=== PATIENT | male | born 1955 | race Caucasian/White ===

== ENCOUNTER 2017-05-12 12:21 | Inpatient (IN) ==
[2017-05-12] MEDS ORDERED: NS 1,000 ML IV PRN (12:51)
--- NOTE | 2017-05-12 13:07 | EKG Report ---
Test Performed on : 05/12/2017 12:34:44 PM Test Reason : cp htn cva Blood Pressure : / mmHG Vent. Rate : 080 BPM Atrial Rate : 080 BPM P-R Int : 176 ms QRS Dur : 094 ms QT Int : 378 ms P-R-T Axes : 072 -35 016 degrees QTc Int : 435 ms Normal sinus rhythm. Left axis deviation Septal infarct (cited on or before 12-MAY-2017) Abnormal ECG When compared with ECG of 12-MAY-2017 12:31, (Unconfirmed) Questionable change in QRS axis Unconfirmed Result
--- NOTE | 2017-05-12 13:27 | Diag Imaging Result Doc PS360 ---
EXAM: HEAD W/O CONTRAST HISTORY: expressive aphasia TECHNIQUE: CT brain without. Dose reduction protocol. COMPARISON: None. FINDINGS: No parenchymal hemorrhage. No epidural or subdural hematoma. No subarachnoid hemorrhage. No mass identified on this noncontrasted exam. No hydrocephalus. Mild atrophy. No sinus opacification. IMPRESSION: No hemorrhage. Mild atrophy. Electronically signed by Sajan Barajas 05/12/2017 1:24 PM
--- NOTE | 2017-05-12 13:27 | Diag Imaging Result Doc PS360 ---
EXAM: CHEST-1 VIEW HISTORY: cp cva TECHNIQUE: COMPARISON: None. FINDINGS: The lungs are well expanded. The heart is not enlarged. The vessels are not distended. There are no infiltrates. No effusion identified. There are several old right rib fractures. IMPRESSION: Negative exam.. Electronically signed by Sajan Barajas 05/12/2017 1:25 PM
[2017-05-12 13:53] LABS: MANUAL DIFF NEEDED? NO
[2017-05-12 14:00] LABS: BASO% 0.8 % (0.0-0.8); EOS# 0.33 X1000 (0.0-0.7); HEMATOCRIT 49.2 % (42.0-52.0); HEMOGLOBIN 17.9 g/dL (14.0-18.0); IMM GRAN# 0.02 X1000 (0.0-0.04); IMM GRAN% 0.3 % (0.0-0.5); LYMPH# 1.91 X1000 (1.2-3.4); LYMPH% 29.2 % (20.5-51.1); MCH 33.9 PG (27-31); MCHC 36.4 g/dL (33-37); MCV 93.2 FL (81-99); MONO# 0.62 X1000 (0.11-0.59); MONO% 9.5 % (1.7-9.3); NEUT% 55.2 % (42.2-75.2); PLT 199 X1000 (130-400); RBC 5.28 XMIL (4.7-6.1)
[2017-05-12 14:06] LABS: URINE SOURCE CLEAN CATCH
[2017-05-12 14:20] LABS: UR AMPHETAMINES QUAL NONE DETECTED (NONE DETECT); UR BARBITUATES QUAL NONE DETECTED (NONE DETECT); UR BENZODIAZEPIN QUAL NONE DETECTED (NONE DETECT); UR CANNABINOIDS QUAL NONE DETECTED (NONE DETECT); UR COCAINE QUAL NONE DETECTED (NONE DETECT); UR MDMA QUAL NONE DETECTED (NONE DETECT); UR METHADONE QUAL NONE DETECTED (NONE DETECT); UR METHAMPHETAMINE QUAL NONE DETECTED (NONE DETECT); UR OPIATES QUAL NONE DETECTED (NONE DETECT); UR OXYCODONE QUAL NONE DETECTED (NONE DETECT); UR PCP QUAL NONE DETECTED (NONE DETECT); UR TCA QUAL NONE DETECTED (NONE DETECT)
[2017-05-12 14:21] LABS: CALCIUM 9.3 mg/dL (8.8-10.2); POTASSIUM 4.5 mmol/L (3.5-5.1); TOTAL BILIRUBIN 0.4 mg/dL (0.20-1.00); TOTAL PROTEIN 7.3 g/dL (6.3-8.3)
[2017-05-12 14:23] LABS: BILIRUBIN URINE NEGATIVE (NEGATIVE); BLOOD URINE TRACE (NEGATIVE); CLARITY CLEAR (CLEAR); COLOR YELLOW; GLUCOSE URINE NEGATIVE (NEGATIVE); LEUKOCYTES URINE TRACE (NEGATIVE); NITRITE URINE NEGATIVE (NEGATIVE); PROTEIN URINE 2+(100 mg/dL) mg/dL (NEGATIVE); SP GRAVITY URINE 1.015; UROBILINOGEN URINE NORMAL
[2017-05-12] MEDS ORDERED: LABETALOL IV ONE (14:37)
[2017-05-12 14:42] LABS: URINE CULTURE PL NEEDED? YES; URINE EPITHELIAL CELLS <10 /HPF (<10); URINE RBC <10 /HPF (<10); URINE WBC <10 /HPF (<10)
[2017-05-12] MEDS ORDERED: ASPIRIN PO ONE (15:15)
--- NOTE | 2017-05-12 15:26 | Diag Imaging Result Doc PS360 ---
EXAM: CHEST-PORTABLE HISTORY: Central Line Insertion TECHNIQUE: COMPARISON: A film taken at 1:30 PM FINDINGS: Interval placement of a right subclavian line. The tip overlies the mid superior vena cava. No pneumothorax. There is been no other interval change. IMPRESSION: Right subclavian line in good position with no postprocedural pneumothorax. Electronically signed by Sajan Barajas 05/12/2017 3:24 PM
[2017-05-12 15:46] LABS: INR 0.9 (0.86-1.15); PROTIME 12.9 Seconds (12.1-15.5)
[2017-05-12 15:47] LABS: PTT PL 29.2 Seconds (22.6-43.9)
--- NOTE | 2017-05-12 16:04 | PROVIDER DOCUMENTATION ---
This chart was entered by Tressa Bey Scribe, acting as scribe for Jordon Zhu MD. HPI-Neurological Disorder - General Chief Complaint: Stroke-Like Symptoms Stated Complaint: STROKE LIKE SX Time Seen by Provider: 05/12/17 12:31 Source: patient Allergies/Adverse Reactions: Patient Allergies Allergy/AdvReac Type Severity Reaction Status Date / Time codeine [Codeine] Allergy Intermediate NAUSEA/VOMI Verified 05/12/17 13:22 TING oxycodone HCl * Allergy Intermediate NAUSEA/VOMI Verified 05/12/17 13:22 [From OxyContin] TING Home Medications: Home Medication List Medication Instructions Recorded Confirmed Last Taken Type No Home Medications 12/12/12 05/12/17 Unknown History - History of Present Illness-Neuro Nature of Presenting Problem: Pt is 61 y/o M presents to the ED with expressive aphasia. Pt's states symptom started around 0700 this am. Pt's states it could have started prior but he did not have someone to talk to before she came home from work. Pt denies recent head injury or trauma. Headache Location: denies: frontal, temporal, occipital, parietal, global Severity: reports: moderate Onset/Duration: reports: this morning (0700) Timing: reports: still present Context: reports: impaired speech Character of Altered Mental Status: reports: N/A Any recent trauma/injury?: reports: none Character of Deficits: reports: impaired speech New weakness or altered sensation location:: reports: none Cognitive Baseline: alert, oriented x3 Gait Baseline: walks without assistance Associated Symptoms: reports: denies symptoms Similar Symptoms Previously?: Yes (present since this am ) Recently seen or treated by another doctor?: No Review of Systems - Adult - REVIEW OF SYSTEMS - ADULT Constitutional: denies: chills, fever Eyes: denies: blurred vision, double vision Ears, Nose, Mouth & Throat: denies: ear pain, nose pain, throat pain Cardiovascular: denies: chest pain, heart murmur, irregular heart rate Respiratory: denies: cough, shortness of breath, wheezing Gastrointestinal: denies: abdominal pain, diarrhea, nausea, vomiting Genitourinary: denies: dysuria, flank pain, hematuria Musculoskeletal: denies: bone pain, joint pain, neck pain Integumentary: denies: hives, itching, rash Neurological: reports: other (expressive aphasia). denies: dizziness/vertigo, headache/migraines, numbness, slurred speech, syncope Psychiatric: reports: no symptoms reported Endocrine: reports: no symptoms reported Hematologic/Lymphatic: reports: no symptoms reported Allergic/Immunologic: reports: no symptoms reported All Other Systems: Reviewed and Negative Past History - Adult - PAST MEDICAL HISTORY-ADULT Review of Records: reports: Nursing Assessment Review, Medications Reviewed, Social history reviewed & non-contributory. Major Childhood Illnesses: reports: denies history Cardiovascular: reports: denies history Respiratory: reports: asthma Gastrointestinal: reports: denies history Obstetrical/Gynecological: reports: denies history Genitourinary: reports: denies history Musculoskeletal: reports: chronic pain Neurological: reports: denies history Endocrine/Immune: reports: denies history Other Conditions: reports: denies history - PRIOR SURGERIES/PROCEDURES Surgical/Procedure History: reports: appendectomy, joint replacement - IMMUNIZATION STATUS Childhood Immunizations: See Nurse Assessment Flu Vaccine: See Nurse Assessment - FAMILY HISTORY Family History: reviewed, not pertinent - SOCIAL HISTORY Smoking: cigarettes, less than 1 pack/day Provider spent 3-5 mins advising pt. on dangers of tobacco.: Discussed manners to quit use, and f/u contacts for add'l counseling. Substance Use: denies Living Situation: family Physical Exam- Neurological - Physical Exam-Neuro Initial Vital Signs Reviewed: Yes General Appearance: alert. negative: appears well, obtunded, combative Eye Exam: bilateral eye: normal inspection, PERRL, EOMI HENMT: normocephalic/atraumatic, moist mucous membranes, dental decay. negative : pharyngeal erythema, tonsillar exudate Head Injury: no evidence of injury. negative: contusions, lacerations, swelling Neck: non-tender, normal inspection. negative: lymphadenopathy, tender lateral Respiratory: chest non-tender, lungs clear, normal breath sounds. negative: crackles, wheezing, increased rate Cardiovascular: normal peripheral pulses, regular rate, rhythm. negative: tachycardia, systolic murmur Abdominal Exam: normal bowel sounds, non tender, soft. negative: distended, rebound, hernia Lymphatic: no adenopathy. negative: enlargement, streaking Extremity: normal inspection. 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 negative: facial droop Neurologic: aphasia (expressive). negative: facial droop, motor weakness Integumentary: normal color, normal turgor, warm/dry. negative: diaphoresis, ecchymosis, erythema, swelling Psych/Mental Status: normal mood/affect, oriented x 3. negative: paranoid, tearful Progress - PLAN OF CARE/RESULTS Progress/Plan/Lab Results: Vital Signs - 8 hr 05/12/17 12:29 Pulse Rate 83 Respiratory Rate 16 Blood Pressure 150/112 O2 Sat by Pulse Oximetry 97 Laboratory Results - last 24 hr 05/12/17 05/12/17 05/12/17 12:40 12:40 12:40 WBC 6.54 RBC 5.28 Hgb 17.9 Hct 49.2 MCV 93.2 MCH 33.9 H MCHC 36.4 RDW Std Deviation 13.1 Plt Count 199 MPV 11.0 H Immature Gran % (Auto) 0.3 Neut % (Auto) 55.2 Lymph % (Auto) 29.2 [place] % (Auto) 9.5 H Eos % (Auto) 5.0 Baso % (Auto) 0.8 Immature Gran # (Auto) 0.02 Neut # (Auto) 3.61 Lymph # (Auto) 1.91 [place] # (Auto) 0.62 H Eos # (Auto) 0.33 Baso # (Auto) 0.05 Sodium 136 Potassium 4.5 Chloride 102 Carbon Dioxide 23 L Anion Gap 12 BUN 26 H Creatinine 1.7 H Estimated GFR/1.73 m2 41 BUN/Creatinine Ratio 15 Glucose 99 Calculated Osmolality 277 Calcium 9.3 Total Bilirubin 0.40 AST 18 ALT 16 Alkaline Phosphatase 111 Troponin T < 0.010 Total Protein 7.3 Albumin 4.0 Globulin 3.0 Albumin/Globulin Ratio 1.0 Urine Source Urine Color Urine Clarity Urine pH Ur Specific [place] Urine Protein Urine Ketones Urine Blood Urine Nitrite Urine Bilirubin Urine Urobilinogen Urine Microscopic RBC Urine WBC Urine Microscopic WBC Ur Epithelial Cells Urine Bacteria Urine Glucose Urine Opiates Screen Ur Oxycodone Screen Urine Methadone Screen Ur Barbituates Screen Ur Tricyclics Screen Ur Phencyclidine Scrn Ur Amphetamines Screen U Methamphetamines Scrn Urine MDMA Screen U Benzodiazepines Scrn Urine Cocaine Screen U Cannabinoids Screen 05/12/17 05/12/17 13:27 13:27 WBC RBC Hgb Hct MCV MCH MCHC RDW Std Deviation Plt Count MPV Immature Gran % (Auto) Neut % (Auto) Lymph % (Auto) [place] % (Auto) Eos % (Auto) Baso % (Auto) Immature Gran # (Auto) Neut # (Auto) Lymph # (Auto) [place] # (Auto) Eos # (Auto) Baso # (Auto) Sodium Potassium Chloride Carbon Dioxide Anion Gap BUN Creatinine Estimated GFR/1.73 m2 BUN/Creatinine Ratio Glucose Calculated Osmolality Calcium Total Bilirubin AST ALT Alkaline Phosphatase Troponin T Total Protein Albumin Globulin Albumin/Globulin Ratio Urine Source CLEAN CATCH Urine Color YELLOW Urine Clarity CLEAR Urine pH 6.0 Ur Specific [place] 1.015 Urine Protein 2+(100 mg/dL) A Urine Ketones NEGATIVE Urine Blood TRACE Urine Nitrite NEGATIVE Urine Bilirubin NEGATIVE Urine Urobilinogen NORMAL Urine Microscopic RBC <10 Urine WBC TRACE A Urine Microscopic WBC <10 Ur Epithelial Cells <10 Urine Bacteria NEGATIVE Urine Glucose NEGATIVE Urine Opiates Screen NONE DETECTED Ur Oxycodone Screen NONE DETECTED Urine Methadone Screen NONE DETECTED Ur Barbituates Screen NONE DETECTED Ur Tricyclics Screen NONE DETECTED Ur Phencyclidine Scrn NONE DETECTED Ur Amphetamines Screen NONE DETECTED U Methamphetamines Scrn NONE DETECTED Urine MDMA Screen NONE DETECTED U Benzodiazepines Scrn NONE DETECTED Urine Cocaine Screen NONE DETECTED U Cannabinoids Screen NONE DETECTED Orders Category Date Time Status Cardiac Monitoring DIRECTED Care 05/12/17 12:51 Active Finger Stick Blood Sugar (ED) DIRECTED Care 05/12/17 12:51 Active Saline Loc NOW Care 05/12/17 12:51 Active PICC Line Consult Routine Cons 05/12/17 13:49 Active CHEST-1 VIEW [RAD] Stat Exams 05/12/17 12:51 Completed CHEST-PORTABLE [RAD] Stat Exams 05/12/17 15:05 Ordered HEAD W/O CONTRAST [CT] Stat Exams 05/12/17 12:51 Completed CBC WITH ELECTRONIC DIFF [HEME] Stat Lab 05/12/17 12:40 Completed COMPREHENSIVE METABOLIC PANEL [CHEM] Stat Lab 05/12/17 12:40 Completed PROTIME WITH INR PL [COAG] Stat Lab 05/12/17 12:[address] [COAG] Stat Lab 05/12/17 12:51 Ordered TROPONIN T Stat Lab 05/12/17 12:[address] W/POSS RFLX CULT [URINALYSIS] Stat Lab 05/12/17 13:27 Completed URINE CULTURE [RM] Routine Lab 05/12/17 14:42 Ordered URINE DRUG SCREEN PL Stat Lab 05/12/17 13:27 Completed 0.9% Sodium Chloride Inj [Ns] 1,000 ml Med 05/12/17 12:51 Active IV 75 mls/hr Labetalol Med 05/12/17 14:37 Discontinued 20 mg IV NOW ONE EKG [EKG] Stat Ther 05/12/17 12:51 Draft Result Diagrams: 05/12/17 12:40 05/12/17 12:40 - XRAY 1 XRAY Study: Chest Impression: Normal XRAY Interpretation: negative exam - CT/MRI 1 CT Study: Head Impression: Abnormal CT Results: no hemorrhage. mild atrophy - CONSULTS/PCP/HOSPITALIST Notification #1 *Consult/PCP/Hospitalist*: Dr. Davison Time Discussed: 15:12 Reason/Comments: Dr. Zhu consulted with Dr. Davison about Pt Consult Disposition: Admit Departure - Departure Date of Disposition Decision: 05/12/17 Time of Disposition Decision: 15:02 DIAGNOSIS: CVA (cerebral vascular accident) Disposition: ADMITTED INPATIENT 09 Certified Medical Emergency: Emergent Condition: Stable Referrals and Follow-Ups: None,PCP [Primary Care Provider] - - Critical Care Note This patient required my direct & personal management of CC.: Yes Total Time (mins): 30 Critical Care Statement: This patient required my direct personal management to treat or rule out processes, the absence of which, could potentiallly result in sudden, clinically significant life or limb threatening deterioration. This chart was documented by the indicated scribe, (Tressa Bey, Jakob) and accurately reflects the services I performed and decisions made by me, Chanel Zhu MD, as attested by the provider's signature.
[2017-05-12] MEDS ORDERED: DEMEROL IV ONE (18:18)
[2017-05-12] MEDS ORDERED: ZOFRAN IV PRN (18:18)
[2017-05-12] MEDS ORDERED: NICODERM PATCH TD PRN (18:18)
[2017-05-12] MEDS ORDERED: SODIUM CHLORIDE 0.9% INJ SCH (18:18)
[2017-05-12] MEDS: APRESOLINE IV PRN (18:52)
[2017-05-12] MEDS: MORPHINE IV PRN ×2 (18:55→23:00)
[2017-05-12 19:37] LABS: UR CREAT RANDOM 149.3 mg/dL (14-26)
[2017-05-12] MEDS: M.V.I.-12 10 ML, FOLIC ACID 1 MG, MAGNESIUM SULFATE 1 GM, THIAMINE 100 MG in NS 1,000 ML IV SCH (19:38)
[2017-05-12] MEDS: PROTONIX IV SCH (19:38)
--- NOTE | 2017-05-12 20:00 | HISTORY AND PHYSICAL ---
PRIMARY CARE PHYSICIAN: None. CHIEF COMPLAINT: Difficulty speaking. HISTORY OF PRESENT ILLNESS: This is a 61-year-old male who denies any prior health history, who presented to the emergency room complaining of about 2 hours of difficulty speaking. His is present with him at the time of my exam. He states that he was in his normal state of health until he attempted to speak to his when she came home from work today. He states he knew what he wanted to say but he could not say words. The states that all speech was garbled at that time. He denied having any deficits. She denied seeing any deficits other than the speech. On presentation to the emergency room he was alert and oriented. Speech was clear but he was having difficulty finding his words and pronouncing words. CT scan of the head was negative for CVA. He denied any chest pain, palpitations, dizziness, syncope, change in vision, hearing. PAST MEDICAL HISTORY: Polycystic kidney disease, asthma, chronic back and knee pain. PAST SURGICAL HISTORY: Appendectomy, bilateral total knee replacements, and 17 various knee surgeries. SOCIAL HISTORY: He smokes half a pack a day. He does drink 2-3 beers a day. He denies illicit drug use. ALLERGIES: Codeine and oxycodone which cause nausea and vomiting. HOME MEDICATIONS: None. REVIEW OF SYSTEMS: A 14 point review of systems is discussed with the patient with pertinent positives stated in HPI. He denied chest pain, palpitations, dizziness, syncope , any change in vision, hearing, or sensation to his body, difficulty swallowing, any shortness of breath, cough, fever, chills, nausea, vomiting, diarrhea, constipation, black or bloody vomitus , black or bloody stools. PHYSICAL EXAMINATION: GENERAL: This is a 61-year-old male, who is sitting up in the bed, in no distress. VITAL SIGNS: Blood pressure is 190/97 with a heart rate of 92, respirations are 18, temperature was 97.9 degrees, with room air saturation of 97 to 100%. HEENT: Head is normocephalic, atraumatic. Pupils are equal, round, react to light. EOMs are intact. Sclerae anicteric. Mucous membranes are moist. He does have poor dentition. NECK: Supple with trachea midline. CARDIOVASCULAR: Regular rate and rhythm. PULMONARY: Breath sounds are clear with no increased work of breathing noted. Chest does rise and fall symmetrically with respiration. GASTROINTESTINAL: Abdomen is soft, nondistended, with bowel sounds in all 4 quadrants. MUSCULOSKELETAL: Good range of motion of joints. EXTREMITIES: No clubbing, cyanosis, or edema. Pulses are palpable x4. NEUROLOGIC: He is alert and oriented x3. Pupils are equal, round, react to light. Forehead is spared. He has equal nasal flaring. No facial droop. No tongue deviation. Equal shoulder shrug. He has 5/5 strength x4. 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 DIAGNOSTICS: CT scan of the head revealed no parenchymal hemorrhage. No epidural or subdural hematoma. No subarachnoid hemorrhage. No mass identified on this noncontrast exam. No hydrocephalus. Mild atrophy. No sinus opacification. LABS: WBC is 6.5, with hemoglobin 17.9, hematocrit 49.2, and platelets of 199, 000. Sodium is 136, potassium 4.5, BUN 26, creatinine 1.7, with a glucose of 99. Troponin is negative. Urinalysis is essentially negative with urine drug screen negative. ASSESSMENT AND PLAN: 1. Transient ischemic attack versus cerebrovascular accident. 2. Expressive aphasia. 3. Acute kidney injury. 4. Tobacco use and abuse. 5. Daily alcohol use. 6. Hypertension. PLAN: He will be admitted to ICU with neuro checks per protocol, telemetry. We will give IV hydration. The patient is unaware of having any prior kidney disease. We will hold any renal toxic medications, renal dose as needed, and recheck labs in the morning. We will allow permissive hypertension for the first 24-48 hours, giving hydralazine p.r.n. blood pressure greater than 200/100. As the patient does drink daily, we will monitor for any signs of alcohol withdrawal or DTs. We will give a banana bag daily and alternate with saline. Echocardiogram and carotid Doppler will be performed in the morning. We will hold him NPO until bedside swallow is done. If he can pass this will start clear liquids and advance as tolerated. If not, we will consult speech therapy. Further treatments pending hospital course. Dictated by NAA Atkinson for Sukhjinder Davison MD cc: NAA Atkinson MD pt has focal weakness of dysarthria, will pursue mri in am to rule out CVA and other plans as above described EPIFANIOT CANDELARIOD
[2017-05-12] MEDS: LIPITOR PO SCH (20:30)
[2017-05-12] MEDS ORDERED: LOVENOX SUBQ SCH (21:00)
[2017-05-13] MEDS: MORPHINE IV PRN ×2 (03:07→22:11)
[2017-05-13 05:42] LABS: HEMATOCRIT 40.2 % (42.0-52.0); HEMOGLOBIN 14.1 g/dL (14.0-18.0); MCH 33.5 PG (27-31); MCHC 35.1 g/dL (33-37); MCV 95.5 FL (81-99); MPV 10.3 FL (7.4-10.4); RBC 4.21 XMIL (4.7-6.1)
[2017-05-13 05:58] LABS: POTASSIUM 3.7 mmol/L (3.5-5.1)
[2017-05-13 06:32] LABS: ALBUMIN 3.2 g/dL (3.5-5.0); ALKALINE PHOSPHATASE 88 U/L (32-122); DIRECT BILIRUBIN < 0.20 mg/dL (0.00-0.20); GOT 15 U/L (10-34); GPT 12 U/L (10-44); TOTAL PROTEIN 6.1 g/dL (6.3-8.3)
[2017-05-13] MEDS ORDERED: MORPHINE IV ONE (07:36)
[2017-05-13] MEDS: ASPIRIN EC PO SCH (08:10)
--- NOTE | 2017-05-13 08:48 | PROGRESS NOTE ---
DATE: 05/13/2017 SUBJECTIVE: Patient states that his speech is improved. He still has trouble sometimes getting his words out. Denies any chest pain or palpitations. Denies any headaches or blurred vision. Denies any focalized weakness elsewhere. PHYSICAL EXAMINATION: Vital Signs: Temperature 98, pulse 59, respiratory rate 19, BP 147/74 to 197/80, saturation 96% on room air. General: Patient is awake, alert. He is currently in no respiratory distress. Speech appears regular to me. It does not appear slurred at the moment, although it is slow and soft. HEENT: Normocephalic, atraumatic. LAURIE. Neck: Supple. CV: Regular rate. Chest: Relatively clear. Abdomen: Soft. Extremities: Moves all extremities. Neurologic: No changes. LABS: Reviewed. CBC and CMP essentially normal. ASSESSMENT: 1. Transient ischemic attack, appears to be improving. 2. Expressive aphasia, improving. 3. Acute kidney injury, resolved. 4. Chronic tobacco abuse. 5. Daily alcohol use. 6. Hypertension. PLAN: We will continue to follow the patient's blood pressure. Certainly, his blood pressure is elevated currently, likely secondary to his shoulder pain. We will change the morphine to [place] and follow. We will continue Lipitor. We will saline lock at the present time. We will adjust his blood pressure medications to include lisinopril 20 mg daily. We will follow. cc: Phi Higginbotham MD
[2017-05-13] MEDS ORDERED: PRINIVIL PO SCH (09:00)
[2017-05-13] MEDS: NORCO-10 PO PRN ×4 (10:15→23:15)
--- NOTE | 2017-05-13 10:52 | Extremity Venous Study ---
Carotid Ultrasound - 05/13/2017 INDICATION: TIA/CVA TECHNIQUE: Bilateral carotid artery Doppler ultrasound COMPARISON: None FINDINGS: On the right side, there is heavy mixed echogenicity plaque throughout the distal common carotid artery, carotid bulb, and proximal internal and external carotid arteries. The maximum velocity is at the mid internal carotid artery measuring 116 cm/s. This is compatible with moderate stenosis of about 40-59%. On the left side, there is heavy mixed echogenicity plaque buildup throughout the carotid artery system diffusely. There is significant stenosis, the worst segment is the proximal internal carotid artery. In this location the maximum velocity is 256 cm/s. This corresponds with critical, 80-99% stenosis. There is similarly elevated velocity throughout the carotid bifurcation and mid internal carotid artery as well. The vertebral arteries are patent bilaterally with forward flow. IMPRESSION: 1. Moderate stenosis of the mid right internal carotid artery. 2. Critical stenosis of the proximal left internal carotid artery, with diffuse disease and stenosis. Electronically signed by Brent Wilburn 05/13/2017 10:50 AM
--- NOTE | 2017-05-13 12:17 | Diag Imaging Result Doc PS360 ---
EXAM: MRI BRAIN W/O CONTRAST HISTORY: stroke like s/s TECHNIQUE: MRI of the brain, T1 axial and sagittal, DWI, T2, FLAIR axial. COMMENT: There is restricted diffusion in a patchy distribution in the posterior left hemisphere including the parietal lobe the temporal lobe and adjacent to the periventricular white matter. There is no evidence of bleed or abnormal extra-axial fluid collection. IMPRESSION: Acute or subacute ischemia in the left hemisphere in the distribution of posterior branches of the middle cerebral artery. Electronically signed by Kyle Black 05/13/2017 12:15 PM
--- NOTE | 2017-05-13 16:45 | Diag Imaging Result Doc PS360 ---
EXAM: US RENAL 2 (RETROPER) COMPLETE INDICATION: Hx of kidney disease TECHNIQUE: COMPARISON: None. FINDINGS: There are innumerable simple appearing renal cysts bilaterally suggesting autosomal dominant polycystic kidney disease. Largest cyst on the right measures up to 4.6 cm. The largest cyst on the left measures up to 4.5 cm. No definite solid renal masses identified. There is no evidence of hydronephrosis. The right kidney measures 14.6 cm and the left kidney measures 13.9 cm in the greatest longitudinal axes. Due to the numerous renal cysts, the cortices are somewhat obscured and difficult to measure. The urinary bladder is grossly unremarkable. IMPRESSION: Innumerable renal cysts bilaterally suggesting polycystic kidney disease. Please correlate with the patient's history. Electronically signed by Reid Beebe 05/13/2017 4:43 PM
[2017-05-13] MEDS: M.V.I.-12 10 ML, FOLIC ACID 1 MG, MAGNESIUM SULFATE 1 GM, THIAMINE 100 MG in NS 1,000 ML IV SCH (18:03)
[2017-05-13] MEDS: PRINIVIL PO SCH (20:06)
[2017-05-13] MEDS: APRESOLINE IV PRN (20:06)
[2017-05-13] MEDS: LIPITOR PO SCH (20:06)
[2017-05-13] MEDS: PROTONIX IV SCH (20:07)
--- NOTE | 2017-05-13 22:50 | ECHO REPORT ---
ORDER DATE: 05/13/2017 MEASUREMENTS: Left ventricular end-diastolic diameter 5.1, systolic diameter 3.3, septal thickness 1, posterior wall thickness 1.1, left atrium 4.3, aortic root 3.6. SUMMARY: 1. Technically difficult study due to limited acoustic window quality. 2. Aortic, mitral, tricuspid, and pulmonic valves are without evidence of structural abnormality. Peak gradient across the aortic valve is less than 10 mmHg. There is trace mitral regurgitation and trace tricuspid regurgitation. Aortic root is normal size. 3. Normal left ventricular dimensions demonstrated. Estimated left ventricular ejection fraction appears to be greater than 70%. No regional wall motion abnormalities are evident. Doppler suggests grade 2 left ventricular diastolic dysfunction with pseudonormalization pattern. Left atrium is mildly enlarged. Right atrium and right ventricle normal size with normal right ventricular systolic function. 4. No pericardial effusion. 5. Appearance of inferior vena cava suggests normal central venous pressure. 6. Sinus rhythm during study. cc: MD Johanna Valenzuela CRNP
[2017-05-14] MEDS: MORPHINE IV PRN (02:17)
[2017-05-14] MEDS: NORCO-10 PO PRN ×3 (06:23→20:29)
[2017-05-14] MEDS ORDERED: RESTORIL PO PRN (08:14)
[2017-05-14] MEDS: APRESOLINE PO SCH ×3 (08:28→17:00)
[2017-05-14] MEDS: PRINIVIL PO SCH ×2 (08:28→20:31)
[2017-05-14] MEDS: ASPIRIN EC PO SCH (08:28)
[2017-05-14] MEDS: PLAVIX PO SCH (08:31)
--- NOTE | 2017-05-14 08:31 | PROGRESS NOTE ---
DATE: 05/14/2017 SUBJECTIVE: Patient without any new complaints this morning. Notes he is still having some difficulty with his speech, but overall is slightly better. PHYSICAL EXAMINATION: Vital signs: Temperature 97.9, pulse 60, respiratory rate 20, BP 187/80 to 212/75. General: Patient is awake, alert. He is in no respiratory distress. Speech is slightly improved although he does still have difficulty finding the correct words. His speech is intelligible. HEENT: Normocephalic, atraumatic. Neck: Supple. CV: Regular rate. Chest: Clear. Abdomen: Soft. Extremities: Moves all extremities. LABS: Renal ultrasound showing multiple renal cysts consistent with polycystic kidney disease. Echo essentially normal with an EF of 70% and a grade 2 diastolic dysfunction. Carotid with moderate stenosis on right. Critical stenosis on left, internal. MRI of the brain with an acute ischemic left hemisphere lesion. ASSESSMENT: 1. Acute cerebrovascular accident. 2. Hypertension. Patient's blood pressure remains elevated. We will add Norvasc and hydralazine to get his blood pressure low. Continue aspirin. Will add Plavix. 3. Carotid stenosis. We will discuss with surgery. 4. Expressive aphasia. We will continue physical therapy. 5. Chronic tobacco abuse. Discussed with patient the perils of smoking. 6. Chronic alcohol abuse. I also discussed this with patient as well. cc: Phi Higginbotham MD
[2017-05-14] MEDS ORDERED: NORVASC PO SCH (09:00)
[2017-05-14] MEDS ORDERED: ZOFRAN ODT PO PRN (09:36)
[2017-05-14] MEDS ORDERED: APRESOLINE PO SCH (18:06)
[2017-05-14] MEDS: HYDROCHLOROTHIAZIDE PO SCH (18:20)
[2017-05-14] MEDS: NORVASC PO SCH (20:29)
[2017-05-14] MEDS: LIPITOR PO SCH (20:29)
[2017-05-15] MEDS: NORCO-10 PO PRN (03:15)
[2017-05-15 07:27] VITALS: BP 188/73
[2017-05-15] MEDS: ASPIRIN EC PO SCH (08:46)
[2017-05-15] MEDS: PRINIVIL PO SCH (08:46)
[2017-05-15] MEDS: PLAVIX PO SCH (08:47)
[2017-05-15] MEDS: HYDROCHLOROTHIAZIDE PO SCH (08:47)
[2017-05-15] MEDS: NORVASC PO SCH (08:47)
--- NOTE | 2017-05-17 17:35 | DISCHARGE SUMMARY ---
ADMISSION DATE: 05/12/2017 DISCHARGE DATE: 05/15/2017 DIAGNOSES: 1. Cerebrovascular accident. 2. Hypertension. 3. Carotid stenosis left. 4. Expressive aphasia. 5. Chronic tobacco use. 6. Chronic alcohol use. DIAGNOSTICS: 1. 05/12/2017 CT of the head revealed no hemorrhage, mild atrophy. 2. 05/12/2017 chest x-ray: The right subclavian line is intact. The tip overlies the superior vena cava with no pneumothorax. 3. 05/13/2017 brain MRI reveals acute or subacute ischemia in the left hemisphere in the distribution of posterior branches of the middle cerebral artery. 4. Carotid Doppler study. Moderate stenosis of the right internal carotid artery, critical stenosis of the proximal left internal carotid artery with diffuse disease and stenosis being 80-99% from the proximal internal carotid artery throughout the carotid bifurcation and mid internal carotid artery. 5. 05/13/2017 echocardiogram. Reveals aortic mitral ,tricuspid and pulmonic valves without evidence of structural abnormality, normal left ventricular dimensions. Estimated left ventricular ejection fraction 70%. No wall motion abnormalities are evident. Grade 2 diastolic dysfunction. 6. 05/13/2017 renal ultrasound. Revealed innumerable renal cysts bilaterally suggesting polycystic kidney disease. HOSPITAL COURSE: Mr. Krishnan presented to the emergency room after having difficulty speaking. He stated that he had been awake for awhile and when his came in from work he attempted to speak to her but he could not get any words out. The stated at first he only made garbled sounds. This did progressively resolve. In the emergency room he continued to have difficulty finding his words and pronouncing them but through the hospitalization this did clear somewhat. By discharge he does have difficulty with some words, he does stutter a few times and eventually gets the word out. He is aware he is doing this but his speech is clear. He has had no other deficits. He did deny any history of hypertension on admission, although blood pressures have remained elevated. He is ultimately requiring Prinivil, Norvasc, Apresoline, hydrochlorothiazide to maintain pressures of the 150s to 170s over 80s. We will discharge him on this regimen. He did have a creatinine of 1.7 on admission. At first, the patient did deny any history of any kidney disease and then once he was admitted and a little less stressed he did remember he had polycystic kidneys and this is verified by a renal ultrasound. We did discuss the patient's CT, MRI and carotid Doppler with Dr. Jeremy Laughlin who recommended that the patient be discharged when stable and come to his office in 6 weeks. At that time they can discuss further treatment. DISCHARGE PHYSICAL EXAMINATION: Cardiovascular: Regular rate and rhythm. S1, S2 appreciated. Pulmonary: Breath sounds are clear. No increased work of breathing noted. Gastrointestinal: Abdomen is soft, nontender, nondistended with bowel sounds in all 4 quadrants. Extremities: No clubbing, cyanosis, or edema. Calves are nontender. Pulses are palpable x4. Neurologic: Forehead is spared. He has no facial droop. No tongue or uvula deviation. Equal shoulder shrug. It Architect are 5/5 bilateral. Wvhoiy-hj-niyb 5/5 bilateral. He has no plantar drift. His gait is steady. He has 5/5 strength bilateral to his legs. DISCHARGE MEDICATIONS: Restoril 15 mg at bedtime p.r.n. Prinivil 20 mg b.i.d. Energy 10 q.4 hours p.r.n. Hydrochlorothiazide 25 p.o. daily. Apresoline 50 mg t.i.d. Plavix 75 daily. Enteric- coated aspirin 81 mg daily. Norvasc 5 b.i.d. Lipitor 40 at bedtime. FOLLOWUP: 1. He needs to follow up with Dr. Jeremy Laughlin in 6 weeks. 2. He is being discharged with [facility] having speech therapy as well as physical therapy and nursing care. He has been given the numbers to [facility] well as [facility] to follow up and obtain a primary care physician. He is discharged with his uncle in stable condition. This is a greater than 30 minute discharge. Dictated by NAA Atkinson for Phi Higginbotham MD cc: NAA Atkinson MD
== END 2017-05-15 09:54 | disposition home health service (06) ==
LOC: P.ED 12:21 → SUATTDRO 18:00 → P.ICU 18:00 → P.MEDSURG 05-13 15:46
PROVIDERS: ATTEND Family Medicine

== ENCOUNTER 2017-05-16 21:18 | Observation (INO) ==
[2017-05-16] MEDS ORDERED: ASPIRIN ONE (21:27)
[2017-05-16] MEDS ORDERED: ASPIRIN PO STA (21:39)
--- NOTE | 2017-05-16 21:42 | EKG Report ---
Test Performed on : 05/16/2017 9:31:54 PM Test Reason : CP Blood Pressure : / mmHG Vent. Rate : 096 BPM Atrial Rate : 096 BPM P-R Int : 170 ms QRS Dur : 092 ms QT Int : 350 ms P-R-T Axes : 084 -08 076 degrees QTc Int : 442 ms Normal sinus rhythm. Cannot rule out Anteroseptal infarct , age undetermined Abnormal ECG No previous ECGs available Unconfirmed Result
[2017-05-16 22:00] LABS: MANUAL DIFF NEEDED? NO
[2017-05-16] MEDS ORDERED: MORPHINE IV ONE (22:02)
[2017-05-16] MEDS ORDERED: NITROGLYCERIN TOP ONE (22:02)
[2017-05-16] MEDS ORDERED: ZOFRAN IV ONE (22:03)
[2017-05-16 22:05] LABS: BASO% 0.5 % (0.0-0.8); EOS# 0.58 X1000 (0.0-0.7); EOS% 7.2 % (0.0-10.0); HEMATOCRIT 51.3 % (42.0-52.0); HEMOGLOBIN 17.8 g/dL (14.0-18.0); IMM GRAN# 0.01 X1000 (0.0-0.04); IMM GRAN% 0.1 % (0.0-0.5); LYMPH# 2.27 X1000 (1.2-3.4); LYMPH% 28.3 % (20.5-51.1); MCH 33.1 PG (27-31); MCHC 34.7 g/dL (33-37); MCV 95.4 FL (81-99); MPV 10.2 FL (7.4-10.4); NEUT% 53.9 % (42.2-75.2); PLT 222 X1000 (130-400); RBC 5.38 XMIL (4.7-6.1)
[2017-05-16 22:33] LABS: ALBUMIN 4.7 g/dL (3.5-5.0); CALCIUM 9.8 mg/dL (8.8-10.2); MAGNESIUM 1.8 mg/dL (1.5-2.7); POTASSIUM 4.2 mmol/L (3.5-5.1); TOTAL BILIRUBIN 0.7 mg/dL (0.20-1.00); TOTAL PROTEIN 9.5 g/dL (6.3-8.3)
[2017-05-16 22:58] LABS: INR 0.83 (0.86-1.15); PROTIME 12.1 Seconds (12.1-15.5)
[2017-05-16 22:59] LABS: PTT PL 34.9 Seconds (22.6-43.9)
--- NOTE | 2017-05-16 23:00 | ED EKG INTERP ---
This chart was entered by Yeni Joshua Scribe, acting as scribe for Joel Rankin MD. EKG Interpretation - EKG Time of EKG reading by physician:: 21:31 EKG Read and Signed by:: Joel Rankin EKG Interpretation (*Must complete 3 of following elements*): Abnormal Rate: 96 Rhythm: normal sinus [place]: normal Comments: cannot rule out anterospetal infarct Attestation - Physician/ KALA Attestation Patient care was provided by Advanced Practice Provider:: No The physician spent face to face time with patient:: Yes Advanced Practice Provider documentation review:: Supervising physician onsite and consulted in the evaluation and care of this patient. The physician did have a face to face encounter with the patient. This chart was documented by the indicated scribe, (Yeni Joshua Scribe) and accurately reflects the services I performed and decisions made by me, Joel Rankin MD, as attested by the provider's signature.
[2017-05-16] MEDS ORDERED: LOVENOX 1 MG/KG SUBQ ONE (23:10)
--- NOTE | 2017-05-16 23:21 | PROVIDER DOCUMENTATION ---
This chart was entered by Yeni Joshua Scribe, acting as scribe for Joel Rankin MD. HPI-Chest Pain - General Chief Complaint: Chest Pain Stated Complaint: CHEST PAIN Time Seen by Provider: 05/16/17 21:52 Source: patient Allergies/Adverse Reactions: Patient Allergies Allergy/AdvReac Type Severity Reaction Status Date / Time codeine [Codeine] Allergy Intermediate NAUSEA/VOMI Verified 05/16/17 21:34 TING oxycodone HCl * Allergy Intermediate NAUSEA/VOMI Verified 05/16/17 21:34 [From OxyContin] TING Home Medications: Home Medication List Medication Instructions Recorded Confirmed Last Taken Type ATORVAstatin [Lipitor] 40 mg PO QHS #30 tablet 05/15/17 05/16/17 Unknown Rx Amlodipine [Norvasc] 5 mg PO BID #60 tablet 05/15/17 05/16/17 Unknown Rx Aspirin EC 81 mg PO DAILY #90 tablet 05/15/17 05/16/17 Unknown Rx Clopidogrel [Plavix] 75 mg PO DAILY #30 tablet 05/15/17 05/16/17 Unknown Rx Hydralazine [Apresoline] 50 mg PO TID #90 tablet 05/15/17 05/16/17 Unknown Rx Hydrochlorothiazide 25 mg PO DAILY #30 tablet 05/15/17 05/16/17 Unknown Rx Hydrocodone/APAP 10 mg/325 mg 1 each PO Q4H PRN PRN #30 tablet 05/15/17 Unknown Rx [[place]-10] LISINOpril [Prinivil] 20 mg PO BID #60 tablet 05/15/17 05/16/17 Unknown Rx Temazepam [Restoril] 15 mg PO HS PRN PRN #15 capsule 05/15/17 05/16/17 Unknown Rx - History of Present Illness-CP Nature of Presenting Problem: PT is a 61 y/o M that presents to ED 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 PT states that he is experiencing dysarthria after stroke. PT denies fever, nausea and vomiting but does state he has chills. Location: reports: substernal Chest Pain Radiation: reports: no radiation Quality of Pain: reports: tightness Severity in ED: moderate (states his pain is a 9) Onset/Duration: abrupt, 1 hour ago Timing: still present Context/Activities at Onset: reports: rest Modifying Factors: improves with: nothing Associated Symptoms: reports: fever/chills (chills only). denies: dizziness, nausea, vomiting Aspirin Treatment Today: provided by ED Recently Seen Here or By Another Healthcare Provider: Yes (PT was admitted for a stroke on Friday) Review of Systems - Adult - REVIEW OF SYSTEMS - ADULT Constitutional: reports: chills. denies: fever Eyes: reports: no symptoms reported Ears, Nose, Mouth & Throat: reports: no symptoms reported Cardiovascular: reports: chest pain (tightness). denies: edema Respiratory: denies: cough, shortness of breath, wheezing Gastrointestinal: denies: abdominal pain, diarrhea, nausea, vomiting Genitourinary: reports: no symptoms reported Musculoskeletal: reports: no symptoms reported Integumentary: reports: no symptoms reported Neurological: denies: dizziness/vertigo, headache/migraines Psychiatric: reports: no symptoms reported Endocrine: reports: no symptoms reported Hematologic/Lymphatic: reports: no symptoms reported Allergic/Immunologic: reports: no symptoms reported All Other Systems: Reviewed and Negative Past History - Adult - PAST MEDICAL HISTORY-ADULT Review of Records: reports: Old Records Reviewed, Nursing Assessment Review, Medications Reviewed Major Childhood Illnesses: reports: denies history Cardiovascular: reports: denies history Respiratory: reports: asthma Gastrointestinal: reports: denies history Obstetrical/Gynecological: reports: denies history Genitourinary: reports: denies history Musculoskeletal: reports: chronic pain Neurological: reports: denies history Endocrine/Immune: reports: denies history Other Conditions: reports: denies history - PRIOR SURGERIES/PROCEDURES Surgical/Procedure History: reports: appendectomy, joint replacement - IMMUNIZATION STATUS Childhood Immunizations: See Nurse Assessment Flu Vaccine: See Nurse Assessment - FAMILY HISTORY Family History: reviewed, not pertinent - SOCIAL HISTORY Smoking: cigarettes, less than 1 pack/day Provider spent 3-5 mins advising pt. on dangers of tobacco.: Discussed manners to quit use, and f/u contacts for add'l counseling. Alcohol Use Frequency: occasionally Physical Exam-General - PHYSICAL EXAM-ADULT Initial Vital Signs Reviewed: Yes - CONSTITUTIONAL General Appearance: alert, mild distress - EYES Eyes: PERRL/EOMI, pink conjunctivae - HEAD, EARS, NOSE, MOUTH & THROAT HENMT: normocephalic/atraumatic, moist mucous membranes, normal ENT inspection - NECK Neck: non-tender, full range of motion, supple - RESPIRATORY Respiratory: chest non-tender, wheezing - CARDIOVASCULAR Cardiovascular: normal peripheral pulses, regular rate, rhythm, no edema - GASTROINTESTINAL (ABDOMEN) Abdominal Exam: normal bowel sounds, non tender, soft - LYMPHATIC Lymphatic: no adenopathy - MUSCULOSKELETAL Back Exam: normal inspection, no CVA tenderness, no vertebral tenderness Extremity: normal range of motion, non-tender - SKIN Integumentary: normal color, normal turgor, warm/dry. 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, grossly normal - PSYCHIATRIC Psych/Mental Status: normal mood/affect, normal thought content, oriented x 3 Progress - PLAN OF CARE/RESULTS Progress/Plan/Lab Results: Vital Signs - 8 hr 05/16/17 21:30 05/16/17 22:02 05/16/17 23:08 Pulse Rate 92 H 88 80 Respiratory Rate 16 13 15 Blood Pressure 198/88 167/96 122/85 O2 Sat by Pulse Oximetry 98 95 95 Laboratory Results - last 24 hr 05/16/17 05/16/17 05/16/17 21:45 21:45 21:45 WBC RBC Hgb Hct MCV MCH MCHC RDW Std Deviation Plt Count MPV Immature Gran % (Auto) Neut % (Auto) Lymph % (Auto) [place] % (Auto) Eos % (Auto) Baso % (Auto) Immature Gran # (Auto) Neut # (Auto) Lymph # (Auto) [place] # (Auto) Eos # (Auto) Baso # (Auto) PT INR APTT (Factor Assay) D-Dimer Sodium 136 Potassium 4.2 Chloride 98 Carbon Dioxide 24 L Anion Gap 14 BUN 24 H Creatinine 2.1 H Estimated GFR/1.73 m2 32 BUN/Creatinine Ratio 11 Glucose 97 Calculated Osmolality 276 Calcium 9.8 Magnesium 1.8 Total Bilirubin 0.70 AST 27 ALT 25 Alkaline Phosphatase 125 H Creatine Kinase 148 Troponin T < 0.010 [id number]-[id number] Pept 556 H Total Protein 9.5 H Albumin 4.7 Globulin 5.0 Albumin/Globulin Ratio 1.0 05/16/17 05/16/17 21:45 21:45 WBC 8.02 RBC 5.38 Hgb 17.8 Hct 51.3 MCV 95.4 MCH 33.1 H MCHC 34.7 RDW Std Deviation 13.7 Plt Count 222 MPV 10.2 Immature Gran % (Auto) 0.1 Neut % (Auto) 53.9 Lymph % (Auto) 28.3 [place] % (Auto) 10.0 H Eos % (Auto) 7.2 Baso % (Auto) 0.5 Immature Gran # (Auto) 0.01 Neut # (Auto) 4.32 Lymph # (Auto) 2.27 [place] # (Auto) 0.80 H Eos # (Auto) 0.58 Baso # (Auto) 0.04 PT 12.1 INR 0.83 L APTT (Factor Assay) 34.9 D-Dimer 1.13 H Sodium Potassium Chloride Carbon Dioxide Anion Gap BUN Creatinine Estimated GFR/1.73 m2 BUN/Creatinine Ratio Glucose Calculated Osmolality Calcium Magnesium Total Bilirubin AST ALT Alkaline Phosphatase Creatine Kinase Troponin T Rea-N-Pqhvsupomsv Pept Total Protein Albumin Globulin Albumin/Globulin Ratio Orders Category Date Time Status Cardiac Monitoring DIRECTED Care 05/16/17 21:39 Active Oxygen Therapy- ED Nursing DIRECTED Care 05/16/17 21:39 Active Saline Loc NOW Care 05/16/17 21:39 Active CBC WITH ELECTRONIC DIFF [HEME] Stat Lab 05/16/17 21:45 Completed CK PROFILE [SP CHEM] Stat Lab 05/16/17 21:45 Completed COMPREHENSIVE METABOLIC PANEL [CHEM] Stat Lab 05/16/17 21:[address] D-DIMER [address] [COAG] Stat Lab 05/16/17 21:45 Completed MAGNESIUM [CHEM] Stat Lab 05/16/17 21:45 Completed PRO B-NATRIURETIC PEPTIDE Stat Lab 05/16/17 21:45 Completed [address]IME WITH INR PL [COAG] Stat Lab 05/16/17 21:[address] [COAG] Stat Lab 05/16/17 21:45 Completed TROPONIN T Stat Lab 05/16/17 21:45 Completed Aspirin Med 05/16/17 21:27 Discontinued 325 mg .ROUTE .STK-MED ONE Aspirin Med 05/16/17 21:39 Discontinued 325 mg PO STAT STA Enoxaparin 1 mg/kg [Lovenox 1 mg/kg] Med 05/16/17 23:10 Discontinued 1 each SUBQ NOW ONE Morphine Med 05/16/17 22:02 Discontinued 4 mg IV NOW ONE Nitroglycerin Med 05/16/17 22:02 Discontinued 1 inch TOP NOW ONE Ondansetron [Zofran] Med 05/16/17 22:03 Discontinued 4 mg IV NOW ONE EKG [EKG] Stat Ther 05/16/17 21:39 Draft Result Diagrams: 05/16/17 21:45 05/16/17 21:45 Departure - Departure Date of Disposition Decision: 05/16/17 Time of Disposition Decision: 23:21 DIAGNOSIS: Elevated d-dimer Chest pain Qualifiers: Chest pain type: unspecified Qualified Code(s): R07.9 - Chest pain, unspecified Disposition: ADMITTED INPATIENT 09 Certified Medical Emergency: Emergent Condition: Stable Referrals and Follow-Ups: None,PCP [Primary Care Provider] - - Critical Care Note This patient required my direct & personal management of CC.: Yes Attestation - Physician/ KALA Attestation Patient care was provided by Advanced Practice Provider:: No The physician spent face to face time with patient:: Yes Advanced Practice Provider documentation review:: Supervising physician onsite and consulted in the evaluation and care of this patient. The physician did have a face to face encounter with the patient. This chart was documented by the indicated scribe, (Yeni Joshua Scribe) and accurately reflects the services I performed and decisions made by me, Joel Rankin MD, as attested by the provider's signature.
[2017-05-16] MEDS ORDERED: NS 1,000 ML IV ONE (23:23)
[2017-05-16] MEDS ORDERED: LOVENOX SUBQ ONE (23:44)
[2017-05-17] MEDS: MORPHINE IV PRN ×4 (00:27→06:57)
[2017-05-17] MEDS ORDERED: RESTORIL PO PRN (08:29)
[2017-05-17] MEDS: HYDROCHLOROTHIAZIDE PO SCH (09:42)
[2017-05-17] MEDS: PRINIVIL PO SCH ×2 (09:43→21:55)
[2017-05-17] MEDS: APRESOLINE PO SCH ×3 (09:43→16:50)
[2017-05-17] MEDS: NORVASC PO SCH ×2 (09:43→21:54)
[2017-05-17] MEDS: NORCO-10 PO PRN (09:43)
[2017-05-17] MEDS: DEMEROL PO PRN ×3 (10:48→22:36)
[2017-05-17] MEDS: LOVENOX SUBQ SCH ×2 (11:21→21:55)
--- NOTE | 2017-05-17 14:34 | HISTORY AND PHYSICAL ---
CHIEF COMPLAINT: Chest pain. HISTORY OF PRESENT ILLNESS: This is a 61-year-old gentleman that presented to the emergency room with tightness in his chest about 45 minutes prior to arrival. He denied any accompanying symptoms. He was found to have O2 saturations of 97%-99% on room air. He does have a D-dimer of 1.13, as well as negative troponins. Of note, the patient was discharged from the hospital earlier in the week after having an acute CVA with resulting expressive aphasia, and was found to have moderate stenosis of the mid right internal carotid artery as well as critical stenosis of the proximal left internal carotid artery with diffuse disease and stenosis, having plaque buildup throughout the left carotid system diffusely with the worst segment being the proximal internal carotid artery at 80%-99% stenosis extending throughout the carotid bifurcation and mid internal carotid artery. He was placed on aspirin and Plavix prior to discharge with instructions to follow up with Dr. Laughlin in 6 weeks to discuss a treatment plan for his carotid treatment. The patient stated that he had stated that he had no diagnosis of hypertension in the past, although during this last admission blood pressures remained elevated and he was ultimately discharged on Norvasc, hydralazine, hydrochlorothiazide, lisinopril, along with Plavix and aspirin. It is unclear if the patient did get these medications filled and continued after discharge. We will attempt to call pharmacy to assess. PAST MEDICAL HISTORY: 1. Hypertension. 2. CVA with resulting expressive dysphagia. 3. Asthma. 4. Chronic back and knee pain. 5. Polycystic kidney disease. PAST SURGICAL HISTORY: Appendectomy. Bilateral total knee replacements and 17 various knee surgery since. SOCIAL HISTORY: He smokes half a pack a day. He drinks 2-3 beers a day. He denies illicit drug use. ALLERGIES: Codeine and oxycodone which cause nausea and vomiting. HOME MEDICATIONS: A list will be obtained. REVIEW OF SYSTEMS: A 14 point review of systems is discussed with patient with pertinent positives being stated in the HPI along with expressive aphasia. He denies any palpitations, dizziness, syncope, shortness of breath, cough, fever, chills, nausea, vomiting, diarrhea, constipation, black or bloody vomitus, black or bloody stools, hematuria, dysuria, frequency, urgency. PHYSICAL EXAMINATION: GENERAL: This is a very pleasant, 61-year-old male who is sitting up in the bed, in no distress. VITAL SIGNS: Blood pressure is 130/79 with a heart rate of 71, respirations are 18, temperature is 98.3 degrees oral with room air saturations 97%-98%. HEENT: Head is normocephalic, atraumatic. Pupils equal, round, react to light. EOMs are intact. Sclerae anicteric. Mucous membranes are moist. NECK: Supple with trachea midline. CARDIOVASCULAR: Regular rate and rhythm. S1, S2 appreciated. PULMONARY: Breath sounds are clear with no increased work of breathing noted. GASTROINTESTINAL: Soft, nontender, nondistended with bowel sounds in all 4 quadrants. MUSCULOSKELETAL: Good range of motion of joints. EXTREMITIES: No clubbing, cyanosis, or edema. Pulses are palpable x4. Calves are nontender. NEUROLOGIC: He is alert and oriented x3, with cranial nerves 2-12 grossly intact. SKIN: Warm and dry with no rashes or lesions noted. DIAGNOSTICS: WBC is 8, with a hemoglobin of 17.8, hematocrit 51.3, and platelets of 222,000. D- dimer is 1.13, sodium is 136, potassium 4.2, BUN 24, creatinine 2.1, with a glucose of 97. Troponin is less than 0.010. ASSESSMENT AND PLAN: 1. Chest pain. 2. Elevated D-dimer. 3. Recent cerebrovascular accident with expressive aphasia. 4. Hypertension. 5. Continued tobacco use and abuse. 6. Noncompliance with medications. PLAN: He will be admitted to the hospital. He will be placed on telemetry. Neuro checks will be performed. We will identify his home medications and continue as appropriate. We will continue with Lovenox 1 mg/kg b.i.d. His chest pain could very well likely be a pulmonary embolus given his recent CVA in. We are unable to get a CTA pulmonary due to his creatinines. We will get a V/Q scan. Meantime we will get a bilateral lower extremity Doppler. Further treatments pending hospital course. Dictated by NAA Atkinson for Phi Higginbotham MD cc: NAA Atkinson MD
--- NOTE | 2017-05-17 15:27 | Extremity Venous Study ---
EXAM: Venous U/S Bilateral Legs HISTORY: d dimer TECHNIQUE: Compression venous ultrasound of the lower extremities with color Doppler COMMENT: The deep veins of both lower extremities are compressible and demonstrate normal color Doppler flow with augmentation. No abnormal fluid collections are present. IMPRESSION: No evidence of deep venous thrombosis. Electronically signed by Kyle Black 05/17/2017 3:24 PM
[2017-05-17] MEDS ORDERED: LIPITOR PO SCH (21:00)
[2017-05-17] MEDS ORDERED: TYLENOL PO PRN (21:12)
[2017-05-18] MEDS: DEMEROL PO PRN ×4 (02:37→17:10)
[2017-05-18] MEDS: NORVASC PO SCH (08:46)
[2017-05-18] MEDS: HYDROCHLOROTHIAZIDE PO SCH (08:46)
[2017-05-18] MEDS: PRINIVIL PO SCH (08:46)
[2017-05-18] MEDS: LOVENOX SUBQ SCH (08:46)
[2017-05-18] MEDS: APRESOLINE PO SCH ×3 (08:46→17:10)
[2017-05-18] MEDS: NORCO-10 PO PRN (08:55)
[2017-05-18 11:05] LABS: HEMATOCRIT 40.6 % (42.0-52.0); HEMOGLOBIN 13.9 g/dL (14.0-18.0); MCH 33.5 PG (27-31); MCHC 34.2 g/dL (33-37); MCV 97.8 FL (81-99); MPV 10.3 FL (7.4-10.4); RBC 4.15 XMIL (4.7-6.1)
[2017-05-18 11:21] LABS: CALCIUM 8.7 mg/dL (8.8-10.2); POTASSIUM 3.9 mmol/L (3.5-5.1)
--- NOTE | 2017-05-18 13:55 | PROGRESS NOTE ---
DATE: 05/18/2017 SUBJECTIVE: Patient is lying in bed watching TV. He denies any chest pain, shortness of breath, palpitations. His is at bedside. OBJECTIVE: Vital Signs: Blood pressure is 135/63 with a heart rate of 56, respirations 18, temperature 98.5 degrees oral with room air saturations of 95-97%. HEENT: Head is normocephalic, atraumatic. Pupils equal, round, react to light. EOMs are intact. Sclerae anicteric. Mucous membranes are moist. Neck: Supple. Trachea midline. Cardiovascular: Regular rate and rhythm. S1, S2 appreciated. Pulmonary: Breath sounds are clear with no increased work of breathing noted. Gastrointestinal: Abdomen is soft, nontender, nondistended with bowel sounds in all 4 quadrants. Back: No CVAT. No spine tenderness. Musculoskeletal: Good range of motion to joints. Extremities: No clubbing, cyanosis, or edema. Calves are nontender. Pulses are palpable x4. Neurologic: He is alert and oriented x3. His speech is clear although he does have expressive aphasia. Forehead is spared. No facial drooping. No tongue or uvula deviation. No plantar drift. Muscle strength is 5/5 x4. Gait is steady. Skin: Warm and dry. No rashes or lesions noted. LABS: WBC is 5.5 with a hemoglobin of 13.9, hematocrit 40 and platelets of 185,000. Sodium is 136, potassium 3.9, BUN 22, creatinine 1.9 with a calcium of 8.7 and this is corrected at 8.1. Lower extremity Doppler bilateral reveals no evidence of DVT. Lung scan V/Q is pending. ASSESSMENT: 1. Chest pain resolved. 2. Elevated D-dimer. 3. Recent cerebrovascular accident with expressive aphasia. 4. Hypertension. 5. Continued tobacco use and abuse. 6. Continued alcohol use and abuse. 7. Noncompliance with medications. PLAN: Will continue telemetry, continue our current regimen. Continue Lovenox 1 mg/kg b.i.d. We will transport him to [facility] for a V/Q lung scan as we are unable to get a CTA due to his creatinine. If CTA is negative for pulmonary embolus we will stop his Lovenox. If it is positive we will begin warfarin. While in the room with the patient the stated that the patient was not going to take any of his medications, take warfarin nor would he have INRs drawn. Dr. Higginbotham did discuss the perils of this with the patient who did not join this conversation and including stroke, ultimately . Dictated by NAA Atkinson for Phi Higginbotham MD cc: NAA Atkinson MD
--- NOTE | 2017-05-18 16:43 | Diag Imaging Result Doc PS360 ---
EXAM: CHEST-2 VIEWS HISTORY: ELEVATED D DIMER, VQ SCAN TECHNIQUE: PA and lateral chest COMMENT: There is COPD. There are old rib fractures on the right. The heart size and primary vascularity are within normal limits. There is been no significant change in the appearance of the chest since 05/16/2017. IMPRESSION: COPD. Electronically signed by Kyle Black 05/18/2017 4:40 PM
--- NOTE | 2017-05-18 16:58 | Diag Imaging Result Doc PS360 ---
EXAM: LUNG SCAN / VQ HISTORY: elevated D dimer/chest pain TECHNIQUE: Ventilation/perfusion lung scan, 40 mCi of technetium 99m DTPA aerosol, 6.1 mCi of technetium 99m MAA intravenously. COMMENT: There is no evidence of ventilation/perfusion mismatch. There are no perfusion defects. IMPRESSION: Normal study. Electronically signed by Kyle Black 05/18/2017 4:55 PM
[2017-05-18 17:10] VITALS: BP 134/65
--- NOTE | 2017-05-19 08:03 | Diag Imaging Result Doc PS360 ---
EXAM: CHEST-2 VIEWS HISTORY: CHEST PAIN TECHNIQUE: Two views COMPARISON: 05/12/2017 FINDINGS: The lungs are well expanded. The heart is not enlarged. The vessels are not distended. There are no infiltrates. No pleural effusions. The right-sided portacatheter has been removed. No pneumothorax. No free air beneath the diaphragm. There are several old right rib fractures. IMPRESSION: No acute abnormality. Electronically signed by Sajan Barajas 05/19/2017 8:01 AM
--- NOTE | 2017-05-24 12:39 | DISCHARGE SUMMARY ---
ADMISSION DATE: 05/16/2017 DISCHARGE DATE: 05/18/2017 DISCHARGE DIAGNOSES: 1. Chest pain, resolved, more of a musculoskeletal pain. 2. Elevated D-dimer with a negative VQ scan and negative ultrasound. 3. Recent cerebrovascular accident with expressive aphasia and vision impairment, unchanged, although slightly improved from the initial insult. 4. Hypertension. The patient's blood pressures were very well controlled during the hospital stay at 107/60 to 134/64. 5. Continued tobacco abuse. Unfortunately despite multiple discussions upon the last hospital admission the patient continues to smoke despite having a stroke and high blood pressure. 6. Relative noncompliance with medications. The patient was not on blood pressure medications prior to his last hospitalization. He did not fill all of his medications after the most recent hospitalization. As noted, his blood pressures were very well controlled in the hospital on those medications. CONSULTATIONS: None. PROCEDURES: None. BRIEF HOSPITAL COURSE: The patient is a 61-year-old male who presented to the Emergency Department as noted in the HPI. He was still having some expressive aphasia although his speech sounded much more clear than he when he left the hospital. He was also having some vision impairment that was unchanged. Overall, the patient had an uneventful hospital course. He was having some right-sided chest wall pain with an elevated D-dimer. This is likely secondary to his carotid disease for which he will follow up as an outpatient with Surgery. This appointment was made at his last hospitalization. However, given his chest wall pain and the fact that he recently was in the ICU for a couple of days an ultrasound of his lower extremities was obtained which was negative. A VQ scan was obtained which also was negative. DISPOSITION: Certainly would prefer to put the patient on an anticoagulant such as Xarelto or Eliquis but he has no insurance. We discussed with him Coumadin. His notes that her mother was on Coumadin and had to have labs checked all the time and that he would not do this. Discussed with both of them that without lab work Coumadin is extremely dangerous therefore we settled with aspirin and Plavix. 34 minutes was spent in discussion with he and his regarding blood thinners, smoking, not drinking, continuing his blood pressure medications, and following up as an outpatient with the surgeon. We will continue that plan. cc: Phi Higginbotham MD
== END 2017-05-18 18:07 | disposition home or self-care (01) ==
LOC: P.ED 21:18 → P.MEDSURG 23:57 → INTOOBSV 23:57
PROVIDERS: ATTEND Family Medicine

== ENCOUNTER 2019-06-27 15:29 | Inpatient (IN) ==
[2019-06-27] MEDS ORDERED: ROCEPHIN 1 GM in NS 50 ML IV ONE (16:12)
[2019-06-27] MEDS ORDERED: BOOSTRIX VACCINE IM ONE (16:12)
--- NOTE | 2019-06-27 16:12 | PROVIDER DOCUMENTATION ---
HPI-General Adult - General Chief Complaint: Animal Bite Stated Complaint: CAT BITE Time Seen by Provider: 06/27/19 15:35 Source: patient Allergies/Adverse Reactions: Patient Allergies Allergy/AdvReac Type Severity Reaction Status Date / Time codeine [Codeine] Allergy Intermediate ITCHING Verified 03/15/18 10:42 nausea Home Medications: Home Medication List Medication Instructions Recorded Confirmed Last Taken Type Hydralazine [Apresoline] 25 mg PO TID 03/10/18 06/27/19 03/06/18 History Albuterol Sulfate [Ventolin Hfa] 2 puff INH BID 03/15/18 06/27/19 Unknown History Hydrocodone/Acetaminophen [[place] 1 each PO Q6-8H PRN PRN 03/15/18 06/27/19 U nknown History 10-325 Tablet] ATORVAstatin [Lipitor] 40 mg PO QHS #90 tab 03/18/18 06/27/19 Unknown Rx Amlodipine [Norvasc] 5 mg PO BID #180 tab 03/18/18 06/27/19 Unknown Rx Aspirin EC 81 mg PO DAILY #90 tab 03/18/18 06/27/19 Unknown Rx Clopidogrel [Plavix] 75 mg PO DAILY #90 tab 03/18/18 06/27/19 Unknown Rx LISINOpril [Prinivil] 20 mg PO BID #180 tab 03/18/18 06/27/19 Unknown Rx Albuterol 2.5MG/Ipratrop 0.5MG 3 ml INH Q4-6H PRN PRN #100 neb 04/04/18 06/27/19 Unknown Rx [Duoneb] - History of Present Illness -Gen Adult Nature of Presenting Problems: Pt. is 63 yom that presents with c/o multiple cat bites to the left hand on Fr ri[place]. Pt. reports today his hand is swollen and painful and he can't move it. He denies other complaints and reports his tetanus is not up to date. Location of Pain/Injury: reports: hand(s) (Left). denies: none, head, face, mouth, neck, chest, upper extremity, abdomen, back, pelvis, genitalia, lower extremity, feet, upper body, lower body, generalized, other Pain Radiation: reports: no radiation. denies: arm(s), back, buttocks, chest, epigastric, feet, groin, jaw, flank (L), legs (lower), LLQ, LUQ, neck, periumbilical, flank (R), RLQ, RUQ, shoulder(s), scapula, scrotal, sternal notch, suprapubic, legs (upper), urethral, vaginal, other Quality of Pain: reports: aching, pressure. denies: burning, sharp, tightness Severity: reports: moderate. denies: mild, severe Onset/Duration: reports: gradual, 2 days ago Timing: reports: still present. denies: improving, intermittent, getting worse Context/Activities at Onset: reports: none. denies: light activity, moderate activity, vigorous activity, recent emotional stress, recent physical stress, recent trauma history, possible bad food, cold exposure, eating, out of country travel, rest, sleep, sexual activity, other Modifying Factors: improves with: nothing Associated Symptoms: reports: joint pain (Left hand). denies: denies symptoms, anxiety, arm pain, back/neck pain, chest pain, constipation, cough, diaphoresis, diarrhea, dizziness, EENT symptoms, fatigue, fever/chills, genitourinary problems, headaches, heartburn, loss of appetite, malaise, muscle aches, sinus congestion/drainage, nausea, rash, seizure, shortness of breath, sensory/motor loss, pain with inspiration, swelling/mass in abdomen, syncope, vomiting, weakness, trouble walking, other Similar Symptoms Previously?: Yes Recently seen or treated by another doctor?: No Review of Systems - Adult - REVIEW OF SYSTEMS - ADULT Constitutional: reports: no symptoms reported Eyes: reports: no symptoms reported Ears, Nose, Mouth & Throat: reports: no symptoms reported Cardiovascular: reports: no symptoms reported Respiratory: reports: no symptoms reported Gastrointestinal: reports: no symptoms reported Genitourinary: reports: no symptoms reported Musculoskeletal: reports: no symptoms reported Integumentary: reports: see HPI, skin sores/ulcer. denies: hair loss, nail changes, skin thickening Neurological: reports: no symptoms reported Psychiatric: reports: no symptoms reported Past History - Adult - PAST MEDICAL HISTORY-ADULT Review of Records: reports: Old Records Reviewed, Nursing Assessment Review, Medications Reviewed, Social history reviewed & non-contributory. Major Childhood Illnesses: reports: denies history Cardiovascular: reports: denies history Respiratory: reports: asthma Gastrointestinal: reports: denies history Obstetrical/Gynecological: reports: denies history Genitourinary: reports: other (polycystic kidney) Musculoskeletal: reports: chronic pain Neurological: reports: CVA, stroke deficits (speech) Endocrine/Immune: reports: denies history Other Conditions: reports: denies history - PRIOR SURGERIES/PROCEDURES Surgical/Procedure History: reports: appendectomy, joint replacement - IMMUNIZATION STATUS Childhood Immunizations: See Nurse Assessment Flu Vaccine: See Nurse Assessment - FAMILY HISTORY Family History: CAD over 55 yo - SOCIAL HISTORY Smoking: denies Physical Exam-General - PHYSICAL EXAM-ADULT Initial Vital Signs Reviewed: Yes - CONSTITUTIONAL General Appearance: alert, mild distress, thin. negative: anxious, slow to respond, obtunded, combative - EYES Eyes: PERRL/EOMI, pink conjunctivae - HEAD, EARS, NOSE, MOUTH & THROAT HENMT: normocephalic/atraumatic, moist mucous membranes, normal ENT inspection - NECK Neck: non-tender, full range of motion, supple, normal inspection - RESPIRATORY Respiratory: lungs clear, normal breath sounds - CARDIOVASCULAR Cardiovascular: normal peripheral pulses, regular rate, rhythm, no edema - GASTROINTESTINAL (ABDOMEN) Abdominal Exam: normal bowel sounds, non tender, soft - LYMPHATIC Lymphatic: no adenopathy - MUSCULOSKELETAL Back Exam: normal inspection, no CVA tenderness, no vertebral tenderness Extremity: erythema (Left hand), inflammation (Left hand), swelling (Left hand), tenderness (Left hand). negative: deformity, joint effusion, slow capillary refill Peripheral Pulses: radial (R): 2+, radial (L): 2+ - SKIN Integumentary: erythema (Left hand), swelling (Left hand), tenderness (Left hand), warm (Left hand). negative: cyanosis, jaundice, pallor - NEUROLOGIC Neurologic: grossly normal, no motor/sensory deficits - PSYCHIATRIC Psych/Mental Status: normal mood/affect, normal thought content, normal thought process, oriented x 3. negative: anxious, paranoid, tearful Progress - PLAN OF CARE/RESULTS Progress/Plan/Lab Results: Vital Signs - 8 hr 06/27/19 15:36 Temperature 98 F Pulse Rate 89 Respiratory Rate 18 Blood Pressure 153/75 O2 Sat by Pulse Oximetry 96 Orders Category Date Time Status Saline Loc NOW Care 06/27/19 16:07 Ordered BLOOD CULTURE [BLDCUL] Stat Lab 06/27/19 16:07 Uncollected CBC WITH ELECTRONIC DIFF [HEME] Stat Lab 06/27/19 16:07 Uncollected COMPREHENSIVE METABOLIC PANEL [CHEM] Stat Lab 06/27/19 16:07 Uncollected LACTATE, PLASMA [CHEM] Stat Lab 06/27/19 16:07 Uncollected 1740: Jorge Pierre RN, Pharmacy notified her that Zosyn and Rocephin are not to be given together as they are in similar classes. Discussed with Nando. Per Nando, given Zosyn now and hold Rocephin. Result Diagrams: 06/27/19 17:20 06/27/19 17:20 - CONSULTS/PCP/HOSPITALIST Notification #1 *Consult/PCP/Hospitalist*: Sotero Higginbotham Time Discussed: 17:48 Reason/Comments: Cellulitis, infected cat bites, leukocytosis Consult Disposition: Admit - CHANGE OF SHIFT REPORT (ED Provider) 1 Report Given and Care Transferred to:: NAA Mcclelland Time of Transfer: 16:56 Items Pending: Labs Departure - Departure Date of Disposition Decision: 06/27/19 Time of Disposition Decision: 17:48 DIAGNOSIS: Decreased renal function Cat bite of hand Qualifiers: Encounter type: initial encounter Laterality: left Qualified Code(s): S61.452A - Open bite of left hand, initial encounter; W55.01XA - Bitten by cat, initial encounter Cellulitis Qualifiers: Site of cellulitis: extremity Site of cellulitis of extremity: upper extremity Laterality: left Qualified Code(s): L03.114 - Cellulitis of left upper limb Leukocytosis Qualifiers: Leukocytosis type: unspecified Qualified Code(s): D72.829 - Elevated white blood cell count, unspecified Disposition: ADMITTED INPATIENT 09 Certified Medical Emergency: Emergent Condition: Fair Referrals and Follow-Ups: Joya Marroquin CRNP [Primary Care Provider] - - Critical Care Note This patient required my direct & personal management of CC.: No Attestation - Physician/ KALA Attestation Patient care was provided by Advanced Practice Provider:: Yes Advanced Practice Provider:: Niko Jovel Advanced Practice Provider documentation review:: The Mid-level provider documentation, treatment plan and medical decision making was reviewed by the physician who agrees with all treatment and medical decision making by the MLP. The physician spent face to face time with patient:: No Advanced Practice Provider documentation review:: Supervising physician onsite and consulted in the evaluation and care of this patient. The physician did not have a face to face encounter with the patient.
[2019-06-27] MEDS ORDERED: ZOSYN 4.5 GM in NS 100 ML IV ONE (16:14)
[2019-06-27 17:36] LABS: BASO# 0.02 X1000 (0.0-0.2); BASO% 0.1 % (0.0-0.8); EOS# 0.31 X1000 (0.0-0.7); EOS% 2.2 % (0.0-10.0); HEMATOCRIT 34.7 % (42.0-52.0); HEMOGLOBIN 11.9 g/dL (14.0-18.0); IMM GRAN# 0.03 X1000 (0.0-0.04); IMM GRAN% 0.2 % (0.0-0.5); LYMPH# 1.67 X1000 (1.2-3.4); LYMPH% 11.7 % (20.5-51.1); MCH 31.6 PG (27-31); MCHC 34.3 g/dL (33-37); MCV 92.3 FL (81-99); MONO% 8.4 % (1.7-9.3); NEUT# 11.06 X1000 (1.4-6.5); NEUT% 77.4 % (42.2-75.2); PLT 195 X1000 (130-400); RBC 3.76 XMIL (4.7-6.1); RDW 13.8 % (11.5-14.5); WBC 14.29 X1000 (4.8-10.8)
[2019-06-27 17:47] LABS: ALBUMIN 3.9 g/dL (3.5-5.0); CALCIUM 9.6 mg/dL (8.8-10.2); CREATININE 3.1 mg/dL (0.7-1.2); POTASSIUM 4.5 mmol/L (3.5-5.1); TOTAL BILIRUBIN 0.5 mg/dL (0.20-1.00); TOTAL PROTEIN 7.2 g/dL (6.3-8.3)
[2019-06-27] MEDS ORDERED: TYLENOL PO ONE (18:11)
[2019-06-27] MEDS ORDERED: TYLENOL PO PRN (18:15)
[2019-06-27] MEDS ORDERED: ZOFRAN IV PRN (18:15)
[2019-06-27] MEDS ORDERED: ZOSYN 3.375 GM in NS 50 ML IV SCH (18:15)
[2019-06-27] MEDS ORDERED: DUONEB (A & A) INH PRN (18:19)
[2019-06-27] MEDS: NS 1,000 ML IV SCH (18:34)
[2019-06-27] MEDS ORDERED: MORPHINE IV ONE (18:50)
--- NOTE | 2019-06-27 19:03 | HISTORY AND PHYSICAL ---
CHIEF COMPLAINT: Cat bite, left hand. HISTORY OF PRESENT ILLNESS: The patient is a 63-year-old male who notes that he had been bitten several times on his hand by his own cat Friday. He noted that Friday night the hand started hurting a little bit and Friday started swelling more. His tried to get him to come yesterday, but he refused. Today, however, his hand is much more swollen and tender. He does have good sensation distally but has difficulty moving his hand. ALLERGIES: Codeine causing itching. MEDICATIONS: Apresoline 25 t.i.d. Ventolin inhaler p.r.n. [place] 10 t.i.d. p.r.n. Lipitor 40 mg daily. Aspirin. Plavix 75. Lisinopril 20 twice daily. PAST MEDICAL HISTORY: Significant for COPD, hypertension, polycystic kidney, history of stroke with some speech deficit. FAMILY HISTORY: Positive for coronary artery disease. SOCIAL HISTORY: The patient has a long history of smoking. Denies alcohol or illicit drug use. REVIEW OF SYSTEMS: The patient denies any fevers, chills, cough, or congestion. Denies any shortness of breath, chest pain, palpitations. Denies any dysuria, frequency, urgency. Denies constipation, melena, hematochezia. Denies any skin rashes. PHYSICAL EXAMINATION: VITAL SIGNS: Reviewed. Temperature 98 degrees, pulse 89, respiratory rate 18, BP 153/75, saturating 96% on room air. GENERAL: Patient is awake, alert, currently in no respiratory distress. HEENT: Normocephalic. NECK: Supple. CARDIOVASCULAR: Regular rate. No murmurs. CHEST: Clear. Nonlabored. ABDOMEN: Soft, nondistended. EXTREMITIES: Moves all extremities. NEUROLOGIC: No focal changes. SKIN: Warm and dry with no rashes other than his right hand which is swollen. No pus draining. It is erythematous to just above his wrist. Good sensation distally. ASSESSMENT: 1. Cellulitis right hand secondary to cat bite. 2. Renal failure with a creatinine at 3.1. 3. Leukocytosis. 4. Hypertension. PLAN: We will admit patient to the hospital. IV fluids. We will place him on clindamycin and Zosyn. We will monitor his kidney function and will follow. cc: Phi Higginbotham MD [facility]
[2019-06-27] MEDS: CLINDAMYCIN 900 MG/D5W 900 MG/50 ML IVPB IV SCH (19:24)
[2019-06-27] MEDS: VENTOLIN HFA INH SCH (21:17)
[2019-06-27] MEDS: PRINIVIL PO SCH (21:50)
[2019-06-27] MEDS: NORCO-10 PO PRN (21:50)
[2019-06-27] MEDS: NORVASC PO SCH (21:50)
[2019-06-27] MEDS: LIPITOR PO SCH (21:50)
[2019-06-28] MEDS: ZOSYN 3.375 GM in NS 50 ML IV SCH ×4 (00:13→17:48)
[2019-06-28] MEDS: CLINDAMYCIN 900 MG/D5W 900 MG/50 ML IVPB IV SCH ×3 (02:43→17:48)
[2019-06-28] MEDS: NORCO-10 PO PRN ×3 (02:43→19:53)
[2019-06-28] MEDS ORDERED: TUMS EXTRA STRENGTH PO PRN (02:50)
[2019-06-28] MEDS: TUMS PO PRN ×2 (03:33→13:18)
[2019-06-28] MEDS: VENTOLIN HFA INH SCH ×2 (08:55→19:50)
[2019-06-28] MEDS: PRINIVIL PO SCH ×2 (09:15→20:00)
[2019-06-28] MEDS: ASPIRIN EC PO SCH (09:15)
[2019-06-28] MEDS: APRESOLINE PO SCH ×3 (09:15→17:47)
[2019-06-28] MEDS: PLAVIX PO SCH (09:16)
[2019-06-28] MEDS: NORVASC PO SCH ×2 (09:16→20:00)
[2019-06-28] MEDS: MORPHINE IV PRN ×4 (09:16→21:45)
[2019-06-28] MEDS: NS 1,000 ML IV SCH ×2 (11:46→21:45)
[2019-06-28] MEDS: LIPITOR PO SCH (20:00)
[2019-06-29] MEDS: ZOSYN 3.375 GM in NS 50 ML IV SCH ×2 (00:10→05:30)
[2019-06-29] MEDS: CLINDAMYCIN 900 MG/D5W 900 MG/50 ML IVPB IV SCH ×3 (01:53→18:28)
[2019-06-29] MEDS: MORPHINE IV PRN ×5 (01:53→20:04)
--- NOTE | 2019-06-29 07:49 | PROGRESS NOTE ---
DATE: 06/28/2019 SUBJECTIVE: Patient notes his hand still hurts although it is better. He has less swelling. He can start moving his fingers. PHYSICAL EXAM: Vital Signs: Temperature 98.6, pulse 74, respiratory rate 18, blood pressure 121/61. General: Patient is awake, currently in no respiratory distress. He is pleasant. HEENT: Normocephalic. Neck: Supple. Cardiovascular: Regular rate. Chest: Clear. Abdomen: Soft. Extremities: Moves all extremities. Neurologic: No focal changes. He has good distal sensation in his fingertips. Skin: Left hand, although still swollen and edematous is less than on admission. ASSESSMENT: 1. Cat bite, left hand. Plan: We will continue patient in the hospital. Continue IV antibiotics. Continue wound therapy. 2. Renal failure with creatinine of 3.1. We will continue IV fluids and will readdress. 3. Hypertension. Blood pressure is stable. cc: Phi Higginbotham MD
[2019-06-29] MEDS: VENTOLIN HFA INH SCH ×2 (08:13→19:45)
[2019-06-29 10:04] LABS: ALBUMIN 3.4 g/dL (3.5-5.0); CALCIUM 9.7 mg/dL (8.8-10.2); CREATININE 2.6 mg/dL (0.7-1.2); PHOSPHORUS 3.2 mg/dL (2.7-4.5); POTASSIUM 5.9 mmol/L (3.5-5.1)
[2019-06-29] MEDS: PLAVIX PO SCH (10:16)
[2019-06-29] MEDS: PRINIVIL PO SCH ×2 (10:17→20:53)
[2019-06-29] MEDS: NORCO-10 PO PRN (10:17)
[2019-06-29] MEDS: APRESOLINE PO SCH ×3 (10:17→18:28)
[2019-06-29] MEDS: NS 1,000 ML IV SCH ×2 (10:18→22:11)
[2019-06-29] MEDS: NORVASC PO SCH ×2 (10:18→20:53)
[2019-06-29] MEDS: ASPIRIN EC PO SCH (10:18)
[2019-06-29 10:29] LABS: BASO# 0.03 X1000 (0.0-0.2); BASO% 0.4 % (0.0-0.8); EOS# 0.67 X1000 (0.0-0.7); EOS% 9.6 % (0.0-10.0); HEMATOCRIT 33.7 % (42.0-52.0); HEMOGLOBIN 11.4 g/dL (14.0-18.0); IMM GRAN# 0.05 X1000 (0.0-0.04); IMM GRAN% 0.7 % (0.0-0.5); LYMPH# 0.91 X1000 (1.2-3.4); MCH 31.3 PG (27-31); MCHC 33.8 g/dL (33-37); MCV 92.6 FL (81-99); MONO# 0.45 X1000 (0.11-0.59); MONO% 6.4 % (1.7-9.3); MPV 10.6 FL (7.4-10.4); NEUT# 4.88 X1000 (1.4-6.5); NEUT% 69.9 % (42.2-75.2); PLT 218 X1000 (130-400); RBC 3.64 XMIL (4.7-6.1); RDW 13.7 % (11.5-14.5); WBC 6.99 X1000 (4.8-10.8)
[2019-06-29] MEDS ORDERED: KAYEXALATE PO ONE (11:01)
[2019-06-29] MEDS ORDERED: NORCO-10 PO PRN (11:27)
--- NOTE | 2019-06-29 11:49 | PROGRESS NOTE ---
DATE: 06/29/2019 SUBJECTIVE: The patient reports feeling fine. Left hand is still swollen, but better in comparing with admission, according to him. He is still very tender to palpation. OBJECTIVE: Vital Signs: Temperature 98.2 degrees, heart rate 66, respiratory rate 18, blood pressure 123/65, O2 saturation 95% on room air. General: This is a 63-year-old male, lying in bed in no acute distress. Cardiovascular: S1, S2 heard. No murmurs, gallops, or rubs. Regular rate and rhythm. Respiratory: Clear bilaterally to auscultation. No work of breathing or using accessory muscles. Abdomen: Soft, nontender to palpation. Bowel sounds present. No organomegaly. Extremities: The patient had left hand swollen still and edematous, apparently better in comparing with yesterday. Good distal sensation in his fingertips. Neurological: The patient is alert and oriented x3. Moves all 4 extremities. LABORATORY DATA: White cell count 6.99, hemoglobin 11.4, hematocrit 33.7, platelets 210,000. BMP reveals potassium 5.9 and creatinine 2.6. ASSESSMENT AND PLAN: 1. Left hand cellulitis secondary to cat bite. The patient is currently on antibiotics. We are going to adjust the doses of Zosyn renally, and also will continue with the same doses of clindamycin. Clinically, the patient reports improving, so at this point, will continue with the same management. The patient is receiving wound care therapy. The Gram stain from wound culture showed gram-positive cocci, and at this point, will continue with the same management. 2. Acute on chronic kidney disease. Creatinine is getting better, but potassium is higher today at 5.9, so will provide Kayexalate, and will keep checking BMP daily. 3. Hypertension. Blood pressure is under control. Will continue with the same management. 4. Chronic pain. The patient reports having been on [place] for years, so at this point she requests the doses of pain medications to be increased. I think at this point, will increase the doses to 1 to 2 tablets by mouth every 6 hours as needed. 5. Disposition. If this patient's white cell count continues to improve and swelling is better, I think we can let her go tomorrow. cc: MD ROSELINE Alvarez
[2019-06-29] MEDS: ZOSYN 2.25 GM in NS 50 ML IV SCH ×3 (12:27→23:06)
[2019-06-29] MEDS: LIPITOR PO SCH (20:53)
[2019-06-30] MEDS: MORPHINE IV PRN ×3 (00:07→09:34)
[2019-06-30] MEDS: CLINDAMYCIN 900 MG/D5W 900 MG/50 ML IVPB IV SCH ×2 (02:18→09:34)
[2019-06-30] MEDS: ZOSYN 2.25 GM in NS 50 ML IV SCH (05:18)
[2019-06-30 05:44] VITALS: BP 121/60
[2019-06-30] MEDS: VENTOLIN HFA INH SCH (08:00)
[2019-06-30] MEDS: APRESOLINE PO SCH (09:34)
[2019-06-30] MEDS: PRINIVIL PO SCH (09:34)
[2019-06-30] MEDS: ASPIRIN EC PO SCH (09:34)
[2019-06-30] MEDS: NORVASC PO SCH (09:34)
[2019-06-30] MEDS: PLAVIX PO SCH (09:34)
--- NOTE | 2019-06-30 14:21 | DISCHARGE SUMMARY ---
ADMISSION DATE: 06/27/2019 DISCHARGE DATE: 06/30/2019 ADMISSION DIAGNOSIS: 1. Cellulitis of the right hand secondary to cat bite. 2. Renal failure with a creatinine of 3.1. 3. Leukocytosis. 4. Hypertension. DISCHARGE DIAGNOSIS: 1. Left hand cellulitis secondary to cat bite. 2. Acute on chronic kidney disease stage 3. 3. Hypertension. 4. Chronic pain syndrome. CONSULTATIONS: None. SURGERIES AND PROCEDURES: None. HOSPITAL COURSE: Manas Krishnan is a 63-year-old male who apparently was bitten on the left hand several times by his own cat this last Friday. On Friday night his hand started hurting, Friday it was swelling refused to come on Friday presented with more tenderness and swelling. There was good sensation but he had difficulties moving the hand. He was started on clindamycin and Zosyn and he did have some signs of acute kidney injury on CKD and so he was given IV fluids as well. Wound Care was consulted. Hopefully they got to see him. Kidney function improved with IV fluids. He did have an elevated potassium of 5.9. He got Kayexalate for that. White count went from 14 down to 6. Infection improved and he was going to be discharged home on Augmentin. DISCHARGE VITAL SIGNS: Temperature 97.9 degrees, heart rate 67, respiratory rate 18, blood pressure 121/60, O2 saturation 96% on room air. LAB DATA: White blood cells 6000, hemoglobin 11, hematocrit 33, platelet count 218,000. Sodium 137, potassium 5.9, BUN 28, creatinine 2.6. Glucose 101. Micro wound showed gram positive cocci. 1+ blood cultures, no growth. IMAGING: None. DISCHARGE DIET: Heart healthy. Activity as tolerated. DISCHARGE MEDICATIONS: 1. Apresoline 25 mg p.o. t.i.d. 2. [place] 1 tablet p.o. every 6 hours p.r.n. 3. Albuterol 2 puffs inhaled twice a day. 4. Atorvastatin 40 mg p.o. nightly. 5. Aspirin enteric-coated 81 mg p.o. daily. 6. Albuterol Atrovent every 4 to 6 hours p.r.n. 7. Norvasc 5 mg p.o. twice daily. 8. Plavix 75 mg p.o. daily. 9. Lisinopril 20 mg p.o. twice daily. 10. Augmentin 1 tablet p.o. twice a day for 10 days. PHYSICIAN FOLLOWUP: Primary Care Provider Joya Marroquin in about a week. Will need a BMP. DISCHARGE INSTRUCTIONS: If her condition changes, contact physician and/or return to the emergency department. Changes may include, but not limited to, shortness of breath, increased fatigue, and excessive bleeding, unexplained weight loss or gain, unimaginable pain. Signs and symptoms of infection. If there is any foul-smelling drainage from the left hand bite location, any red streaks coming from the area or color darkening, fever over 101, increased pain. Report to your primary care provider. Try to keep your appointment. Take the medications as prescribed. DISCHARGE DISPOSITION: Home. Dictated by NAA Park for Edmond Clements MD cc: NAA Park MD
== END 2019-06-30 11:05 | disposition home or self-care (01) | DRG 603 ==
LOC: P.ED 15:29 → SUATTDRO 15:30 → P.MEDSURG 20:32
PROVIDERS: ATTEND Internal Medicine